=== PATIENT | male | born 1985 | race American Indian/Alaskan Native ===

== ENCOUNTER 2022-03-05 08:38 | Emergency (ER) | payer MEDICAID ==
[~2022-03-05] VITALS: Ht 172.7 cm; Wt 165.0 kg
[2022-03-05 09:36] VITALS: BP 101/79
== END 2022-03-05 09:37 | disposition home or self-care (01) ==
LOC: ER 08:39
DX: Z00.00 Encounter for general adult medical examination without abnormal findings (principal); F11.90 Opioid use, unspecified, uncomplicated
CPT/HCPCS: 99281

== ENCOUNTER 2025-03-02 07:51 | Emergency (ER) | payer MEDICAID ==
[~2025-03-02] VITALS: Ht 172.7 cm; Wt 70.4 kg
[2025-03-02 07:52] VITALS: BP 162/74; RESP 24; TEMP 98; O2SAT 100
--- NOTE | 2025-03-02 08:18 | ELECTROCARDIOGRAPH REPORT ---
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 Louisa Martinez Measurements Intervals [place] Rate: 101 P: 70 SC: 146 QRS: 35 QRSD: 85 T: 44 QT: 343 QTc: 445 Interpretive Statements Sinus tachycardia Electronically Signed On 03-02-2025 11:14:[address] Louisa Martinez Please click the below link to view image of tracing.
[2025-03-02] MEDS: LORazepam 1 MG tablet PO ONE (09:26)
--- NOTE | 2025-03-02 09:34 | Physician Documentation ---
History of Present Illness ~ Chief Complaint: Narcotic Withdrawl Stated Complaint: WITHDRAWALS Time Seen by MD: 08:43 OK to notify your PCP?: Yes Source: patient, RN/MD, RN notes reviewed, old records Mode of Arrival: Ambulatory Exam Limitations: no limitations HPI 40 year old male seen in bed 09 presents to the emergency department for complaints of withdrawals. Patient brought in by the staff from [facility] due to withdrawals from fentanyl. He states he is not feeling well and he complains of chills and nausea. Patient identifies that their last use of fentanyl was three days ago. Additionally he states that he had started taking methadone. Patient is a poor historian and unable to state what he wanted to be treated. Patient denies any other associated symptoms at this time. Patient denies any other alleviating or exacerbating factors. Medication Reconciliation Allergies: Coded Allergies: No Known Allergies (Unverified , 03/05/22) Past Medical History Past Medical History: No Pertinent History Drug Use: other Review of Systems All Other Systems at this time: Reviewed and Negative ROS As stated above in the HPI, otherwise all systems are reviewed and negative. Physical Exam Vital Signs: RN Vital Signs have been reviewed: Yes, Temperature: 98.0, Source: Temporal, Heart Rate: 105, Respiratory Rate: 24, BP: 162/74, Pulse Oximetry: 100, Weight: 70.400 Oxygen Flow Rate: 0 Pulse Oximetry Reflects: adequate oxygenation Physical Exam General: The patient is well developed, well nourished, nontoxic appearing and is in no acute distress. Skin: [place], warm and dry with no rashes. HEENT: Head was normocephalic and atraumatic. Eyes - pupils equal, round, reactive to light and accommodation. Extraocular movements were intact. Conjunctivae were nonicteric. Ears - bilateral tympanic membranes were normal. The mouth and oropharynx were clear with moist mucous membranes. There were no pharyngeal exudates or erythema. Neck: Supple and nontender. There was no jugular venous distention, lymphadenopathy, thyromegaly or masses. Chest: Clear to auscultation bilaterally without wheezes, rales or rhonchi. No accessory muscle use. No dullness to percussion. Heart: Rapid heart rate. S1, S2. No murmurs. Palpation of the chest wall was normal. No rubs or thrills. Abdomen: Soft, nontender and nondistended. Positive bowel sounds. No guarding or rebound. No hepatosplenomegaly or palpable masses. Extremities: No cyanosis, clubbing or edema. The patient moves all extremities. Pulses were equal and symmetric. Neurologic: 1mm pin point pupils. Cranial nerves II-XII were intact. Sensation was intact to light touch throughout. Motor strength was 5/5 in all four extremities. Deep tendon reflexes were intact in both upper and lower extremities. Psychologic: The patient had poor judgment. The patient was oriented to person, place and time. Progress Progress Note The patient decided to leave against medical advice as he kept refusing treatment. Patient was prescribed 2mg of Ativan but refused it. At this time there was a discussion with the patient about taking suboxone vs the methadone and the differences between the two. At this time he was prescribed 30mg of suboxone and then decided to leave against medical advice refusing any additional treatment. Results/Orders Reviewed/noted all lab results: Yes Results/Orders Orders - VIRGILIO MONROY MD Electrocardiogram (03/02/25 07:59) Completed Orders - VIRGILIO MONROY MD Electrocardiogram (03/02/25 07:59) Lorazepam Tablet (Ativan Tablet) (03/02/25 09:15) Vital Signs 03/02/25 03/02/25 07:52 09:47 Temp 98.0 Pulse 105 20 Resp 24 B/P (MAP) 162/74 Pulse Ox 100 O2 Flow Rate 0 Re-Evaluation Re-Evaluation : Re-Evaluation: Improved Progress Patient was seen and examined. Patient was given reassurance. The patient was offered Ativan. Patient was very agitated not making it clear what kind of treatment he was hoping to receive. I spent most of my time with the patient trying to given him to stay so that he can get a formal and complete evaluation. The patient was given 2 mg of Ativan and then refused and walked out. Later it sounded like he wanted additional doses of methadone. He was taking 30 mg of methadone today and started having withdrawal symptoms. We discussed briefly other forms of medications such as Suboxone however patient's refused and also complicated by the fact that the patient is on methadone. Patient is quite agitated. 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 Virgilio Monroy Measurements Intervals [place] Rate: 101 P: 70 ND: 146 QRS: 35 QRSD: 85 T: 44 QT: 343 QTc: 445 Interpretive Statements Sinus tachycardia Electronically Signed On 03-02-2025 11:14:[address] Virgilio Monroy Please click the below link to view image of tracing. EKG Date and Time:03/02/25 0817 Electronically Signed by: VIRGILIO MONROY MD Date and Time: 03/02/25 1114 Medical Decision Making Additional info obtained from: old records Differential Dx:Considerations: Include: Alcohol withdrawl synd., Delerium tremens, Hallucinosis, Dehydration, Drug induced psychosis, Electolyte imbalance, Encephalopathy, Intoxication-alcohol, Intoxication-other drug, Medical noncompliance, Personality disorder, Schizophrenia, Substance abuse disorder, Thiamine deficiency, Thyrotoxicosis, Other Departure Time of Disposition: 09:30 Disposition: 07 LEFT AGAINST MEDICAL ADVICE Impression: Primary Impression: Narcotic withdrawal Condition: Stable Discharge Instructions: Narcotic Withdrawal Referrals: NO PRIMARY CARE PROVIDER (PCP) Education Educated: Patient, Family Educated regarding: diagnosis, treatment, need for follow up Signature Scribe Signature: Scribed for Virgilio Monroy MD by Alyssia Holt . 03/02/25 10:52 Attestation: The note accurately reflects work and decisions made by me.Virgilio Monroy MD 03/02/25 09:34 VIRGILIO MONROY MD Mar 02, 2025 09:[address] Mar 02, 2025 10:51
[2025-03-02 09:47] VITALS: PULSE 20
== END 2025-03-02 09:48 | disposition left against medical advice (07) ==
LOC: ER 07:52
DX: F11.23 Opioid dependence with withdrawal (principal); R06.02 Shortness of breath
CPT/HCPCS: 93005; 99283